=== PATIENT | female | born 1995 | race Caucasian/White ===

== ENCOUNTER 2017-08-23 19:23 | Emergency (ER) | payer SELFPAY ==
[~2017-08-23] VITALS: Ht 157.5 cm; Wt 62.0 kg
[2017-08-23 19:39] VITALS: BP 130/85; PULSE 129; RESP 18; TEMP 99.4; O2SAT 98
== END 2017-08-23 22:15 | disposition left against medical advice (07) ==
LOC: NED 19:23
DX: R50.9 Fever, unspecified (principal)
CPT/HCPCS: 99281